=== PATIENT | male | born 1990 | race Native Hawaiian/Other Pacific Islander ===

== ENCOUNTER 2022-10-20 16:20 | Emergency (ER) | payer OTHER ==
[~2022-10-20] VITALS: Ht 172.7 cm; Wt 75.3 kg
== END 2022-10-20 17:50 ==
LOC: ED 16:20
DX: R22.0 Localized swelling, mass and lump, head (principal); K04.7 Periapical abscess without sinus
CPT/HCPCS: 96372; 99283; J0696; J1885

== ENCOUNTER 2023-02-17 08:24 | Emergency (ER) | payer OTHER ==
[~2023-02-17] VITALS: Ht 172.7 cm; Wt 70.3 kg
[2023-02-17 08:42] LABS: PLATELET COUNT 204 K/uL (142-355)
[2023-02-17 08:51] LABS: POTASSIUM 4.1 mmol/L (3.6-5.2)
[2023-02-17 10:32] VITALS: BP 136/88; TEMP 98.2
== END 2023-02-17 10:50 | disposition home or self-care (01) ==
LOC: ED 08:24
PROVIDERS: Family Medicine
DX: R56.9 Unspecified convulsions (principal); M19.011 Primary osteoarthritis, right shoulder
CPT/HCPCS: 80053; 80307; 81002; 84484; 85027; 93005; 99283